=== PATIENT | male | born 1970 | race Caucasian/White ===

== ENCOUNTER 2018-09-18 20:53 | Emergency (ER) | payer OTHER ==
[~2018-09-18] VITALS: Ht 167.6 cm; Wt 79.4 kg
[2018-09-18] MEDS ORDERED: TOPROL XL25 MG (21:10)
[2018-09-18] MEDS ORDERED: METOPROLOL SUCC50 MG (21:11)
[2018-09-18] MEDS ORDERED: COZAAR 25 MG TA25 M1 (21:11)
[2018-09-18] MEDS ORDERED: HYDROCHLOROTHIA25 M2 (21:12)
[2018-09-18 21:51] LABS: INFLUENZA A ANTIGEN None Detected (None Detect); INFLUENZA B ANTIGEN None Detected (None Detect)
[2018-09-18 21:59] LABS: ABSOLUTE BASOPHILS 0.1 thou/uL (0.0-0.2); ABSOLUTE EOSINOPHILS 0.3 thou/uL (0.0-0.7); ABSOLUTE LYMPHOCYTES 1.1 thou/uL (0.8-5.3); ABSOLUTE MONOCYTES 0.8 thou/uL (0.0-1.2); BASOPHILS 0.7 %; EOSINOPHILS 3.5 %; HEMATOCRIT 37.9 % (42.0-52.0); MCH 30.5 pg (26.0-34.0); MCHC 34.4 g/dL (28.0-37.0); MCV 88.9 fL (80.0-100.0); MONOCYTES 8.8 %; MPV 8.6 fl. (7.2-11.1); NUCLEATED RBCS 0 /100WBC; PLATELET COUNT* 227 thou/uL (150-400); RBC 4.27 mil/uL (4.50-6.00); RDW-CV 14.4 % (10.5-14.5); WBC 9.4 thou/uL (4.0-11.0)
[2018-09-18 22:08] LABS: ALBUMIN 3.3 g/dL (3.4-5.0); CALCIUM 8.3 mg/dL (8.5-10.1); CREATININE 1.3 mg/dL (0.6-1.3); POTASSIUM 4.8 mmol/L (3.5-5.1); TOTAL PROTEIN 7.2 g/dL (6.4-8.2)
[2018-09-18] MEDS ORDERED: TESSALON PERLE100 MG PO (22:39)
[2018-09-18] MEDS ORDERED: PREDNISONE 10 M10 MG PO (22:39)
[2018-09-18] MEDS ORDERED: VENTOLIN HFA 1818 GM INH (22:39)
[2018-09-18 23:48] VITALS: BP 139/99
== END 2018-09-18 23:48 | disposition home or self-care (01) ==
LOC: M.ERS 20:53
PROVIDERS: Physician Assistant
DX: B34.9 Viral infection, unspecified (principal); R11.10 Vomiting, unspecified; I10 Essential (primary) hypertension; F17.210 Nicotine dependence, cigarettes, uncomplicated; Z88.5 Allergy status to narcotic agent